=== PATIENT | male | born 1935 ===

== ENCOUNTER 2017-05-01 07:54 | Day surgery (SDC) | payer MEDICARE ==
[2017-04-24 10:05] VITALS: BMI 22.4
[~2017-05-01 07:54] MED LIST: Lidocaine 2% Jelly (Uro-Jet) ONE
[2017-05-01] MEDS ORDERED: Iohexol 240 (50 ml) ONE (09:27)
[2017-05-01] MEDS ORDERED: Lactated Ringer's 1,000 ML IV ONE (09:34)
[2017-05-01] MEDS: cefTRIAXone 1 gm 1 GM/100 ML BAG IVPB ONE ×2 (09:34→09:45)
[2017-05-01] MEDS ORDERED: Propofol 10 mg/ml Inj (20 ML) ONE (09:45)
[2017-05-01] MEDS ORDERED: Lidocaine Hydrochloride 5 ML INJ ONE (09:45)
[2017-05-01] MEDS ORDERED: Midazolam 2 MG/2 ML VIAL ONE (09:45)
[2017-05-01] MEDS ORDERED: Phenylephrine 10 mg/ml Inj ONE (10:18)
--- NOTE | 2017-05-01 10:21 | PCM.SURG1 ---
Surgeon's Initial Post Op Note - Surgeon's Notes Surgeon: Jacques Hall Cargo And Container Inspector: none Type of Anesthesia: IV Sedation Pre-Operative Diagnosis: hematuria Operative Findings: bph Post-Operative Diagnosis: same Operation Performed: cysto. bilat rtg pyelogram. prostatic urethral fulguration Specimen/Specimens Removed: urine Estimated Blood Loss: EBL {In ML}: 0 Blood Products Given: N/A Drains Used: No Drains Post-Op Condition: Good Date of Surgery/Procedure: 05/01/17 Time of Surgery/Procedure: 10:15
[2017-05-01 11:37] VITALS: RESP 16
[2017-05-01 11:56] VITALS: BP 102/60; PULSE 61; TEMP 97.1; O2SAT 98
--- NOTE | 2017-05-01 18:13 | RAD ---
PROCEDURE: Intraoperative fluoroscopy HISTORY: HEMATURIA COMPARISON: Not available TECHNIQUE: Intraoperative fluoroscopy was provided for retrograde pyelo ureteral atrophy. Total time of fluoroscopy was 16.6 seconds. FINDINGS: Multiple fluoroscopic spot films are submitted. No filling defects are demonstrated within the pelvicaliceal system or ureter bilaterally. IMPRESSION: Fluoroscopy provided.
--- NOTE | 2017-05-01 18:13 | RAD ---
HISTORY: HEMATURIA COMPARISON: No prior. FINDINGS: A KEG HEADER RADIOGRAPH DEMONSTRATES NO ABNORMAL INTRA-ABDOMINAL CALCIFICATIONS. THERE IS MODERATE RETAINED FECES. THERE IS NO EVIDENCE OF BOWEL OBSTRUCTION.: Two films are submitted from the retrograde pyelo ureteral g. these demonstrate no filling defect within the collecting system bilaterally. Majority of the right ureter is not opacified. IMPRESSION: No filling defect demonstrated.
--- NOTE | 2017-05-01 21:23 | OP ---
PROCEDURE DATE: 05/01/2017 UROLOGY OPERATIVE REPORT PREOPERATIVE DIAGNOSES: 1. Hematuria. 2. Possible left ureteral abnormality. POSTOPERATIVE DIAGNOSES: 1. Hematuria. 2. Possible left ureteral abnormality. 3. Benign prostatic hypertrophy. 4. Prostate nodule. PROCEDURE: 1. Cystoscopy. 2. Bilateral retrograde pyelogram. 3. Prostatic urethral fulguration. DESCRIPTION OF PROCEDURE: Procedure as follows: The patient was placed in lithotomy position. Genitalia prepped and draped sterilely. Perioperative antibiotics were administered. Sedation was applied by the anesthesiologist. A 22-Mohawk cystoscope sheath was introduced under direct vision. Urethra, prostate, and bladder were inspected with 30-degree and 70-degree lenses. FINDINGS: There was no stricture in the anterior urethra. There was evidence of previous prostatectomy. Prostatic fossa was opened and well healed. There was no bladder neck contraction. The veru was intact. There was a nodule approximately 0.5 to 1 cm in size located on the left lateral aspect of the prostatic urethra. This was a smooth-walled nodule. There were prominent blood vessels on the surface. The bladder was inspected. There was no bladder neck contraction. There was no bladder tumor. There was no bladder stone. There was mild bladder trabeculation. The ureteral orifices were in normal position and shape. Occlusive tip retrograde ureteropyelogram was performed. Iodinated contrast dye was instilled via cone tip catheter into each ureteral orifice. The ureters and the kidneys were viewed sequentially. There was no evidence of filling defect or tumor or obstruction within the ureters or kidneys or collecting systems. Post drainage films were obtained as well confirming the above findings. The bladder was reinspected with 70-degree lens and confirmed the above findings. There was no bladder diverticulum. There was no bladder tumor. The prostatic nodule on the left side was fulgurated with ball electrode and electrocautery. Hemostasis was complete. The bladder was drained. Cystoscope sheath removed. Rectal examination was performed. There was mild induration of the prostate. Prostate was approximately 20 g in size. There was no fixation or nodularity. The patient tolerated procedure without complication. Allison Hall MD
== END 2017-05-01 12:08 | disposition home or self-care (01) ==
LOC: C.SDS 07:54
PROVIDERS: ATTEND Urology
DX: N40.2 Nodular prostate without lower urinary tract symptoms (principal); N40.0 Benign prostatic hyperplasia without lower urinary tract symptoms; R31.0 Gross hematuria
CPT/HCPCS: 52005; 52214; 74022; 76000; 82948; 87086; J0696; J7120; Q9966

== ENCOUNTER 2017-07-17 06:04 | Observation (INO) | payer MEDICARE ==
[2017-04-24 10:05] VITALS: BMI 22.4
[2017-07-17] MEDS ORDERED: cefTRIAXone 1 gm 1 GM/100 ML BAG IVPB ONE (07:44)
[2017-07-17] MEDS ORDERED: Lidocaine 2% Jelly (Uro-Jet) ONE (07:45)
[2017-07-17] MEDS ORDERED: Etomidate 20 mg/10ml Inj IV ONE (07:48)
[2017-07-17] MEDS ORDERED: Lactated Ringer's 1,000 ML IV ONE ×2 (08:15)
[2017-07-17] MEDS ORDERED: Iohexol 240 (50 ml) ONE (08:26)
[2017-07-17] MEDS ORDERED: HYDROmorphone 0.5 mg/0.5 ml ISec IVP PRN (09:08)
--- NOTE | 2017-07-17 10:49 | PCM.SURG1 ---
Surgeon's Initial Post Op Note - Surgeon's Notes Surgeon: Jacques Hall Grinder Outside Diameter: none Type of Anesthesia: General LMA Pre-Operative Diagnosis: BPH, Hematuria Operative Findings: same Post-Operative Diagnosis: same Operation Performed: cysto. bilat rtg pyelogram. turp Specimen/Specimens Removed: urine. prostate Estimated Blood Loss: EBL {In ML}: 0 Blood Products Given: N/A Post-Op Condition: Good Date of Surgery/Procedure: 07/17/17 Time of Surgery/Procedure: 09:15
[2017-07-17] MEDS ORDERED: Pantoprazole 40 mg EC Tab PO SCH (13:45)
--- NOTE | 2017-07-17 15:55 | CP.PCM.HP ---
History of Present Illness - History of Present Illness History of Present Illness: Patient is an 82 year old male with a past medical history of HTN, hyperlipidemia, CHF, DM, CAD s/p stent x3, and GERD who is seen at bedside in PACU following TURP with Dr. Hall for BPH and hematuria. Per Dr. Hall, he would like patient to be admitted for observation overnight due to extensive cardiac history to ensure safety to go home tomorrow. Patient admits to feeling drowsy at time of questioning due to anesthesia but reports that he is feeling well and denies headache, fever, chills, chest pain, SOB, palpitations, cough, abdominal pain, N/V/C/D, and calf pain. PMH: BPH, hematuria, DMII with gastroparesis, CHF, NC, HTN, HLD, cataracts, glaucoma, vertigo, gastritis, diverticulitis, GERD, colonic polyps Meds: * flomax 0.4 mg QD * Sucralfate 1 g BID * Simvastatin 20 mg HS * Omeprazole QD * Toprol XL 50 mg QD * Proscar 5 mg QD * Enalapril maleate 2.5 mg QD * Cholecalciderol 1 BID * ASA 81 mg QD * Amiodarone 200 mg QD Surg hx: cardiac cath with 3 stents placed (2003, 2004, 2010), procedure for glaucoma, appendectomy, angioplasty, AICD (2009) Allergies: NKDA FMH: Heart disease in mother (unspecified) SH: denies etoh, denies alcohol, denies illict drugs Present on Admission - Present on Admission Any Indicators Present on Admission: No Review of Systems - Review of Systems All systems: reviewed and no additional remarkable complaints except (as per HPI ) Past Patient History - Infectious Disease Hx of Infectious Diseases: None - Tetanus Immunizations Tetanus Immunization: Unknown - Past Medical History & Family History Past Medical History?: Yes - Past Social History Smoking Status: Former Smoker - CARDIAC Hx Cardiac Disorders: Yes Hx Cardia Arrhythmia: Yes Hx Congestive Heart Failure: Yes Hx Heart Attack: Yes Hx Hypercholesterolemia: Yes Hx Hypertension: Yes Hx Internal Defibrillator: Yes Hx Pacemaker: Yes (AICD 2009) Hx Peripheral Edema: Yes (ANKLES) Other/Comment: Patient has 3 coronary stents 2003, 2004, 2010 - NEUROLOGICAL Hx Neurological Disorder: Yes Hx Vertigo: Yes - HEENT Hx HEENT Problems: Yes Hx Cataracts: Yes Hx Glaucoma: Yes - ENDOCRINE/METABOLIC Hx Endocrine Disorders: Yes Hx Adrenal Cancer: Yes Hx Diabetes Mellitus Type 2: Yes - GASTROINTESTINAL Hx Gastrointestinal Disorders: Yes Hx Diverticulitis: Yes Hx Gastritis: Yes Hx Gastroesophageal Reflux: Yes Other/Comment: SLOW GASTRIC EMPTYING - GENITOURINARY/GYNECOLOGICAL Hx Genitourinary Disorders: Yes Hx Hematuria: Yes Hx Prostate Problems: Yes (BPH) - SURGICAL HISTORY Hx Surgeries: Yes Hx Angioplasty: Yes Hx Appendectomy: Yes Hx Cardiac Catheterization: Yes Hx Coronary Stent: Yes (3 STENT 2003,2004,2010) Hx Eye Surgery: Yes Other/Comment: PROSTATE BIOPSY - ANESTHESIA Hx Anesthesia: Yes Hx Anesthesia Reactions: No Hx Malignant Hyperthermia: No Has any member of the family had a problem w/ anesthesia?: (UNKNOWN) Meds Allergies/Adverse Reactions: Allergies Allergy/AdvReac Type Severity Reaction Status Date / Time No Known Allergies Allergy Verified 06/26/17 11:06 Physical Exam - Constitutional Appears: Non-toxic, No Acute Distress - Head Exam Head Exam: ATRAUMATIC, NORMAL INSPECTION, NORMOCEPHALIC - Eye Exam Eye Exam: EOMI, Normal appearance, PERRL - ENT Exam ENT Exam: Mucous Membranes Dry - Neck Exam Neck exam: Positive for: Normal Inspection - Respiratory Exam Respiratory Exam: Clear to Auscultation Bilateral, NORMAL BREATHING PATTERN - Cardiovascular Exam Cardiovascular Exam: REGULAR RHYTHM, +S1, +S2 - GI/Abdominal Exam GI & Abdominal Exam: Normal Bowel Sounds, Soft. absent: Distended, Tenderness - Extremities Exam Extremities exam: Positive for: normal inspection. Negative for: calf tenderness - Neurological Exam Neurological exam: Alert, Oriented x3 - Psychiatric Exam Psychiatric exam: Normal Affect, Normal Mood - Skin Skin Exam: Dry, Intact, Normal Color, Warm Results - Vital Signs Recent Vital Signs: Last Vital Signs Temp 98.7 F 07/17/17 15:00 Pulse 60 07/17/17 15:00 Resp 15 07/17/17 15:00 BP 116/62 07/17/17 15:00 Pulse Ox 98 07/17/17 15:00 - Labs Labs: Laboratory Results - last 24 hr 07/17/17 06:44 POC Glucose (mg/dL) 90 Assessment & Plan - Assessment and Plan (Free Text) Plan: BPH s/p TURP on 07/17/17 * Dr. Justo Hall on case, help appreciated * Brar in place * Proscar 5 mg daily * Flomax 0.4 mg daily History of CAD with stent * Crestor 5 mg PO HS History of CHF with AICD * Continue home meds: Analapril, amiodarone, toprol XL HTN * Continue home meds (above) HLD * Continue home meds (above) History of GERD * continue home med: Pantoprazole 40 mg daily PPX * Protonix 40 mg daily * SCDs * Hold heparin due to TURP
--- NOTE | 2017-07-17 17:59 | RAD ---
PROCEDURE: Intraoperative Fluoroscopy. HISTORY: HEMATURIA FINDINGS: Fluoroscopic assistance was provided for cystography.. Please refer to the operative report from Dr. MEEK, [place]. Total fluoroscopic time (continuous mode) utilized during the procedure 26.0 (seconds). Total exam DLP: (mGy) 29.7
[2017-07-17] MEDS ORDERED: Ergocalciferol 50,000 Intl Units Cap PO SCH (18:00)
[2017-07-18 08:00] VITALS: RESP 20
[2017-07-18] MEDS ORDERED: Magnesium Hydroxide Susp 30 ml UD PO ONE (08:52)
[2017-07-18] MEDS ORDERED: Metoprolol Succinate 50 mg XL Tab PO SCH (10:00)
[2017-07-18] MEDS ORDERED: Pantoprazole 40 mg EC Tab PO SCH (10:00)
--- NOTE | 2017-07-18 10:43 | PCM.URO ---
Urology Progress Note - General General: Tolerating Diet - Subjective Abdominal Pain: No Flank Pain: No Nausea: No Vomiting: No Hematuria: No Dsypnea: No Chest Pain: No Fever & Chills: No Other: Pt had arrhythmia last night. - Objective Intake & Output: Intake & Output 07/17/17 07/18/17 07/18/17 18:59 06:59 18:59 Intake Total 100 200 Output Total 775 2150 Balance -675 -1950 Intake: IV 100 Oral 200 Output: Urine 775 2150 2-way Urethral 1550 Vital Signs: Vital Signs - 24 hr 07/17/17 07/17/17 07/17/17 11:00 12:00 15:00 Temperature 98.7 F Pulse Rate 60 60 60 Respiratory 19 13 15 Rate Blood Pressure 128/82 117/69 116/62 O2 Sat by Pulse 100 98 98 Oximetry 07/17/17 07/17/17 07/17/17 17:00 19:30 20:00 Temperature 97.5 F L Pulse Rate 60 60 60 Respiratory 10 L 13 20 Rate Blood Pressure 110/56 L 101/52 L 123/76 O2 Sat by Pulse 99 98 99 Oximetry 07/17/17 07/17/17 07/17/17 20:21 23:35 23:38 Temperature 98.8 F Pulse Rate 60 60 60 Respiratory 20 Rate Blood Pressure 101/59 L O2 Sat by Pulse 98 Oximetry 07/18/17 07/18/17 07/18/17 02:05 04:14 04:45 Temperature 97.5 F L 97.4 F L Pulse Rate 62 66 73 Respiratory 20 22 Rate Blood Pressure 135/73 118/71 O2 Sat by Pulse 100 99 Oximetry 07/18/17 07/18/17 07:10 09:56 Temperature 97.9 F Pulse Rate 69 Respiratory 20 Rate Blood Pressure 111/64 119/73 O2 Sat by Pulse 98 Oximetry - Physical Exam Abdominal Exam: Soft, Non-Tender, Non-Distended (Awake and alert Comfortable Lungs: clear to P&A Heart: reg rhythm) Bowel Sounds: Normal Back: No CVA Tenderness Genitalia: Without Inflammation Urinary Catheter Draining Well: Yes Urine Color: Yellow Extremities: Normal: Bilateral - Male Phallus: Normal, Uncircumcised Scrotum: Normal Testes: Normal: Bilateral - Plan Advance Diet: Yes Catheter Care: Yes Ambulation - Out of Bed: Yes Intake & Output: Yes See Orders: Yes Additional Information: IMP: progressing well post TURP. POD#1 - Date & Time of Note Date: 07/18/17 Time: 08:55
[2017-07-18 10:55] LABS: HEMOGLOBIN 13.1 g/dL (12.0-18.0); MEAN CELL VOLUME 92.1 fL (80.0-94.0); MEAN CORPUSCULAR HEMOGLOBIN 32.2 pg (27.0-31.0); MEAN CORPUSCULAR HGB CONC 34.9 g/dL (33.0-37.0); MEAN PLATELET VOLUME 8.2 fL (7.2-11.7); RBC 4.08 Mil/uL (4.40-5.90); RED CELL DISTRIBUTION WIDTH 13.7 % (11.5-14.5); WHITE BLOOD COUNT 5.3 K/uL (4.8-10.8)
[2017-07-18 11:18] LABS: BLOOD UREA NITROGEN 18 mg/dL (9-20); CALCIUM 8.8 mg/dl (8.6-10.4); GFR AFRICAN-AMERICAN > 60; GFR NON-AFRICAN AMERICAN > 60
--- NOTE | 2017-07-18 13:02 | CARD ---
APPROVED REPORT EKG Measurement Heart [id number] <Conclusion> Atrial-paced rhythm with prolonged AV conduction Left axis deviation Nonspecific intraventricular conduction delay ST & T wave abnormality, consider anterolateral ischemia Abnormal ECG
--- NOTE | 2017-07-18 14:41 | CP.PCM.DIS ---
Provider - Provider Date of Admission: 07/17/17 11:01 Attending physician: Allison Hall MD Time Spent in preparation of Discharge (in minutes): 35 Diagnosis - Discharge Diagnosis (1) BPH (benign prostatic hyperplasia) Status: Acute (2) S/P TURP (status post transurethral resection of prostate) Status: Acute (3) Ventricular arrhythmia Status: Acute Hospital Course - Lab Results Lab Results: Micro Results 07/17/17 09:30 Urine,Clean Catch Urine Culture - Final No Growth (<1,000 CFU/ML) Most Recent Lab Values WBC 5.3 K/uL (4.8-10.8) 07/18/17 10:51 RBC 4.08 Mil/uL (4.40-5.90) L 07/18/17 10:51 Hgb 13.1 g/dL (12.0-18.0) 07/18/17 10:51 Hct 37.6 % (35.0-51.0) 07/18/17 10:51 MCV 92.1 fL (80.0-94.0) 07/18/17 10:51 MCH 32.2 pg (27.0-31.0) H 07/18/17 10:51 MCHC 34.9 g/dL (33.0-37.0) 07/18/17 10:51 RDW 13.7 % (11.5-14.5) 07/18/17 10:51 Plt Count 135 K/uL (130-400) 07/18/17 10:51 MPV 8.2 fL (7.2-11.7) 07/18/17 10:51 Sodium 135 mmol/L (132-148) 07/18/17 10:51 Potassium 4.4 mmol/L (3.6-5.2) 07/18/17 10:51 Chloride 98 mmol/L (98-107) 07/18/17 10:51 Carbon Dioxide 28 mmol/L (22-30) 07/18/17 10:51 Anion Gap 14 (10-20) 07/18/17 10:51 BUN 18 mg/dL (9-20) 07/18/17 10:51 Creatinine 1.1 mg/dL (0.8-1.5) 07/18/17 10:51 Est GFR ( Amer) > 60 07/18/17 10:51 Est GFR (Non-Af Amer) > 60 07/18/17 10:51 POC Glucose (mg/dL) 90 mg/dL (65-110) 07/17/17 06:44 Random Glucose 141 mg/dL (75-110) H 07/18/17 10:51 Calcium 8.8 mg/dl (8.6-10.4) 07/18/17 10:51 Magnesium 2.1 mg/dL (1.6-2.3) 07/18/17 10:51 - Hospital Course Hospital Course: On admission: Patient is an 82 year old male with a past medical history of HTN, hyperlipidemia, CHF, DM, CAD s/p stent x3, and GERD who is seen at bedside in PACU following TURP with Dr. Hall for BPH and hematuria. Per Dr. Hall, he would like patient to be admitted for observation overnight due to extensive cardiac history to ensure safety to go home tomorrow. Patient admits to feeling drowsy at time of questioning due to anesthesia but reports that he is feeling well and denies headache, fever, chills, chest pain, SOB, palpitations, cough, abdominal pain, N/V/C/D, and calf pain. Hospital course: Patient was admitted and observed overnight. Patient had 1 episode of VTach lasting 20 seconds without symptoms. Patients labs were checked this morning and H&H were stable, and electrolytes were normal. Patient is clear for discharge per Dr. Hall and Dr. Azul. Patient was told to follow up with his PCP this week as well as Dr. Hall at his office. Patient was told to resume home medications as well as taking new prescriptions given by Dr. Hall. Please note that this is a summary of events. For more details please see complete medical record. Discharge Exam - Head Exam Head Exam: ATRAUMATIC, NORMAL INSPECTION, NORMOCEPHALIC Discharge Plan - Follow Up Plan Condition: GOOD Disposition: RELEASED IN [facility] Additional Instructions: Please follow up with Dr. Hall in his office in 1 week. Please follow up with your primary care doctor within 1 week of discharge. Please continue your home medications as usual and take the antibiotic, as well as the pain medication (as needed) provided to you by Dr. Hall. Referrals: Allison Hall MD [Staff Provider] -
--- NOTE | 2017-07-18 15:23 | RAD ---
PROCEDURE: Cervical Spine Radiographs. HISTORY: Pain. No history of recent/ related trauma provided COMPARISON: None. FINDINGS: BONES: Alignment maintained. No fracture. Dens Intact. DISC SPACES: Mild degenerative changes primarily disc space narrowing confined to the C5-6 level. SOFT TISSUES: Normal. No prevertebral soft tissue swelling. OTHER FINDINGS: None. IMPRESSION: No significant or acute findings to account for/ related to the clinical presentation.
[2017-07-18 15:49] VITALS: BP 101/63; TEMP 97.7; O2SAT 96
[2017-07-18] MEDS ORDERED: Bisacodyl 5mg EC Tab PO ONE (17:09)
[2017-07-18 19:17] VITALS: PULSE 75
--- NOTE | 2017-07-24 01:53 | OP ---
PROCEDURE DATE: PREOPERATIVE DIAGNOSIS: Benign prostatic hypertrophy. POSTOPERATIVE DIAGNOSIS: Benign prostatic hypertrophy. PROCEDURE: Cystoscopy. Transurethral resection of prostate. Bilateral retrograde pyelogram. OPERATING SURGEON: Allison Hall MD PROCEDURE: Cystoscopy. Bilateral retrograde pyelogram. Transurethral resection of prostate. General anesthesia was administered via laryngeal mask airway. The patient received perioperative antibiotics. The patient was placed in lithotomy position. Genitalia prepped and draped sterilely. A 22-[place]oz[place]ican cystoscope sheath was introduced under direct vision. Urethra, prostate, and bladder were inspected. FINDINGS: There was no stricture in the anterior urethra. There was evidence of mild prostatic hypertrophy which was subocclusive. There was no bladder neck contraction. There was no bladder tumor. There was no bladder stone. There was mild bladder trabeculation. The ureteral orifice was in normal position and shape. Retrograde ureteral pyelogram was performed. Iodinated contrast dye was instilled via cone tip catheter into each ureteral orifice. The ureters and the kidneys were viewed sequentially. There was no evidence of filling defect or obstruction within the ureters or collecting systems. Post drainage film confirmed the above findings. The cystoscope and sheath removed. A 26-[place]ozambican continuous flow resectoscope sheath was introduced under direct vision. The resectoscope was inserted. The prostatic adenomatous tissue was resected. The ureteral orifice identified and spared throughout the resection. The verumontanum was maintained throughout the resection. Hemostasis was achieved after each section of resection. The prostatic chips were removed using the i[employer] scientific evacuator. Resectoscope was reinserted. There were no residual prostatic chips. Hemostasis was complete. The resectoscope and sheath removed. A 20-[place]ozambican Brar catheter was inserted. Bladder drainage was clear. Rectal examination had been performed prior to the procedure. The O'Jhon drape was inserted in the rectum prior to doing draping. The patient was returned to supine position. The patient tolerated procedure without complication. The patient was transferred to recovery room in satisfactory condition. Allison Hall MD
== END 2017-07-18 18:32 | disposition home or self-care (01) ==
LOC: C.SDS 06:04 → INTOOBSV 11:01 → C.9S 11:01 → C.6T 19:55
PROVIDERS: ADMIT Urology; ATTEND Urology
DX: N40.0 Benign prostatic hyperplasia without lower urinary tract symptoms (principal); N32.89 Other specified disorders of bladder; E11.43 Type 2 diabetes mellitus with diabetic autonomic (poly)neuropathy; E78.00 Pure hypercholesterolemia, unspecified; I11.0 Hypertensive heart disease with heart failure; I25.10 Atherosclerotic heart disease of native coronary artery without angina pectoris; I25.2 Old myocardial infarction; I50.9 Heart failure, unspecified; K21.9 Gastro-esophageal reflux disease without esophagitis; K31.84 Gastroparesis; Z95.810 Presence of automatic (implantable) cardiac defibrillator; Z85.858 Personal history of malignant neoplasm of other endocrine glands; Z87.891 Personal history of nicotine dependence; Z95.5 Presence of coronary angioplasty implant and graft; I47.2 Ventricular tachycardia
CPT/HCPCS: 36415; 52601; 72052; 80048; 82948; 83735; 85027; 87086; 88104; 88305; 93005; G0378; J0696; J1170; J7120

== ENCOUNTER 2017-11-05 10:46 | Emergency (ER) | payer MEDICARE ==
[2017-11-05 10:47] VITALS: BMI 22.4
[2017-11-05 11:09] VITALS: PULSE 60; RESP 18
--- NOTE | 2017-11-05 11:13 | C.PDOC ---
History Of Present Illness 82 year old male presents to ED for evaluation of dysuria and urinary frequency for the past 3 weeks. Pt has history of BPH s/p TURP August [address] Jacques Hall. Pt states he is able to urinate completely. Otherwise, denies fever, chills, nausea, or vomiting. Time Seen by Provider: 11/05/17 10:59 Chief Complaint (Nursing): Male Genitourinary History Per: Patient History/Exam Limitations: no limitations Onset/Duration Of Symptoms: Days Current Symptoms Are (Timing): Still Present Quality Of Discomfort: "Pain" Associated Symptoms: Urinary Symptoms Recent travel outside of the [place]: No Additional History Per: Patient Past Medical History Reviewed: Historical Data, Nursing Documentation, Vital Signs Vital Signs: Last Vital Signs Temp 97.7 F 11/05/17 10:46 Pulse 60 11/05/17 10:46 Resp 18 11/05/17 10:46 BP 114/74 11/05/17 10:46 Pulse Ox 100 11/05/17 11:15 - Medical History PMH: Benign Prostatic Hyperplasia, CAD, Cardia Arrhythmia, CHF, Colonic Polyps, Diabetes, Diverticulitis, Gastritis, HTN, Hypercholesterolemia, Peripheral Edema (ANKLES) Surgical History: Appendectomy, Coronary Stent (3 STENT 2003,2004,2010), Endoscopy, Pacemaker (AICD 2009) - [facility] Procedures DX ULTRASOUND NEC (09/24/14) PERCUTAN NEEDLE BIOPSY OF PROSTATE (09/24/14) Family History: States: Unknown Family Hx - Social History Hx Tobacco Use: No Hx Alcohol Use: No Hx Substance Use: No - Immunization History Hx Tetanus Toxoid Vaccination: No Hx Influenza Vaccination: Yes Hx Pneumococcal Vaccination: No Review Of Systems Except As Marked, All Systems Reviewed And Found Negative. Constitutional: Negative for: Fever, Chills Gastrointestinal: Positive for: Abdominal Pain. Negative for: Nausea, Vomiting , Diarrhea Genitourinary: Positive for: Dysuria, Frequency. Negative for: Hematuria Musculoskeletal: Negative for: Back Pain Physical Exam - Physical Exam Appears: Non-toxic, No Acute Distress Skin: Normal Color, Warm, Dry Head: Atraumatic, Normacephalic Eye(s): bilateral: Normal Inspection Oral Mucosa: Moist Neck: Supple Cardiovascular: Rhythm Regular, No Murmur Respiratory: Normal Breath Sounds, No Rales, No Rhonchi, No Wheezing Gastrointestinal/Abdominal: Soft, No Tenderness Back: No CVA Tenderness Extremity: Normal ROM Neurological/Psych: Oriented x3, Normal Speech ED Course And Treatment O2 Sat by Pulse Oximetry: 100 (RA) Pulse Ox Interpretation: Normal - Physician Consult Information Time Consulting Physician Contacted: 12:02 Physician Contacted: Allison Hall Outcome Of Conversation: AGREES W PLAN, DOXY BID X 7 AND NSAID Disposition Counseled Patient/Family Regarding: Studies Performed, Diagnosis, Need For Followup, Rx Given - Disposition Referrals: Allison Hall MD [Staff Provider] - Disposition: HOME/ ROUTINE Disposition Time: 12:08 Condition: IMPROVED Prescriptions: Doxycycline Hyclate [Doryx] 100 mg PO BID #14 cap Ibuprofen [Motrin] 400 mg PO QID #30 tab Phenazopyridine HCl [Pyridium] 200 mg PO BID #6 tablet Instructions: Dysuria, Adult (DC) Forms: [employer] ([place]ese) - Clinical Impression Clinical Impression: Dysuria - Scribe Statement The provider has reviewed the documentation as recorded by the Scribflorencia Kc All medical record entries made by the Scribe were at my direction and personally dictated by me. I have reviewed the chart and agree that the record accurately reflects my personal performance of the history, physical exam, medical decision making, and the department course for this patient. I have also personally directed, reviewed, and agree with the discharge instructions and disposition.
--- NOTE | 2017-11-05 11:13 | C.PDOC ---
Time Seen by Provider: 11/05/17 10:59 Past Medical History Vital Signs: Last Vital Signs Temp 97.7 F 11/05/17 10:46 Pulse 60 11/05/17 10:46 Resp 18 11/05/17 10:46 BP 114/74 11/05/17 10:46 Pulse Ox 100 11/05/17 10:46 - Medical History PMH: Benign Prostatic Hyperplasia, CAD, Cardia Arrhythmia, CHF, Colonic Polyps, Diabetes, Diverticulitis, Gastritis, HTN, Hypercholesterolemia, Peripheral Edema (ANKLES) Surgical History: Appendectomy, Coronary Stent (3 STENT 2003,2004,2010), Endoscopy, Pacemaker (AICD 2009) - [employer] Procedures DX ULTRASOUND NEC (09/24/14) PERCUTAN NEEDLE BIOPSY OF PROSTATE (09/24/14) Family History: States: Unknown Family Hx - Social History Hx Tobacco Use: No Hx Alcohol Use: No Hx Substance Use: No - Immunization History Hx Tetanus Toxoid Vaccination: No Hx Influenza Vaccination: Yes Hx Pneumococcal Vaccination: No ED Course And Treatment O2 Sat by Pulse Oximetry: 100
[2017-11-05 11:40] LABS: SQUAMOUS EPITHIAL < 1 /hpf (0-5); URINE BILIRUBIN NEGATIVE (NEGATIVE); URINE BLOOD NEGATIVE (NEGATIVE); URINE CLARITY Clear (Clear); URINE COLOR Yellow (YELLOW); URINE GLUCOSE (UA) NORMAL (Normal); URINE LEUKOCYTE ESTERASE NEG Leu/uL (Negative); URINE PROTEIN NEGATIVE (NEGATIVE); URINE UROBILINOGEN NORMAL mg/dL (0.2-1.0)
[2017-11-05 12:51] VITALS: BP 120/73; TEMP 98; O2SAT 98
== END 2017-11-05 12:55 | disposition home or self-care (01) ==
LOC: C.ER 10:46
DX: R30.0 Dysuria (principal)